=== PATIENT | male | born 1985 | race Hispanic/Latino ===

== ENCOUNTER 2019-04-04 05:34 | Emergency (ER) | payer OTHER ==
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
== END 2019-04-04 06:33 ==
LOC: NAV ERS 05:34
DX: S60.041A Contusion of right ring finger without damage to nail, initial encounter (principal); W22.8XXA Striking against or struck by other objects, initial encounter